=== PATIENT | male | born 1985 | race Caucasian/White ===

== ENCOUNTER 2020-07-01 09:43 | Emergency (ER) | payer MEDICAID, OTHER ==
[~2020-07-01] VITALS: Ht 172.7 cm; Wt 71.9 kg
[2020-07-01 09:51] VITALS: BP 138/86
[2020-07-01] MEDS ORDERED: ibuprofen tablet 400 MG TABLET PO ONE (10:40)
[2020-07-01] MEDS ORDERED: IBUP-1984 PO (10:40)
== END 2020-07-01 11:01 | disposition home or self-care (01) ==
LOC: ER 09:44
DX: M79.644 Pain in right finger(s) (principal); Z79.899 Other long term (current) drug therapy
CPT/HCPCS: 73140; 99283